=== PATIENT | female | born 1995 | race Caucasian/White ===

== ENCOUNTER 2017-07-23 15:39 | Emergency (ER) | payer BC ==
[2017-07-23] MEDS: IBUPROFEN 600 MG TAB PO (19:04)
== END 2017-07-23 20:46 | disposition home or self-care (01) ==
LOC: FTE 15:39
DX: S89.92XA Unspecified injury of left lower leg, initial encounter (principal); W51.XXXA Accidental striking against or bumped into by another person, initial encounter; Y92.9 Unspecified place or not applicable
CPT/HCPCS: 29505; 73562; 99283-25